=== PATIENT | female | born 1985 | race Two or more races ===

== ENCOUNTER 2020-07-18 13:03 | Emergency (ER) | payer BC, OTHER ==
--- NOTE | 2020-07-18 13:07 | PDOC ---
Rapid Medical Evaluation Time Seen by Provider: 07/18/20 13:06 Medical Evaluation: Allergies Allergy/AdvReac Type Severity Reaction Status Date / Time No Known Allergies Allergy Verified 07/18/20 13:05 07/18/20 13:06 34 year old female no pmhx with lower abdominal pain x 3 days with vaginal bleeding. Pt also complaining of Headache VSS PE: Mildly ttp to lower abdomen Plan: Labs TVUS
[2020-07-18 13:10] VITALS: BP 122/81; PULSE 70; TEMP 98.7; BMI 25.8
--- OUTSIDE RECORDS SUMMARY | 2020-07-18 13:41 | XMS ---
:1985 Author Organization [facility] Care Team Providers Name Role Phone KRISTIE CASH Unavailable Unavailable Re-disclosure Warning The records that you are about to access may contain information from federally- assisted alcohol or drug abuse programs. If such information is present, then the following federally mandated warning applies: This information has been disclosed to you from records protected by federal confidentiality rules (42 CFR part 2). The federal rules prohibit you from making any further disclosure of this information unless further disclosure is expressly permitted by the written consent of the person to whom it pertains or as otherwise permitted by 42 CFR part 2. A general authorization for the release of medical or other information is NOT sufficient for this purpose. The Federal rules restrict any use of the information to criminally investigate or prosecute any alcohol or drug abuse patient.The records that you are about to access may contain highly sensitive health information, the redisclosure of which is protected by Article 27-F of the [facility] Public Health law. If you continue you may haveaccess to information: Regarding HIV / AIDS; Provided by facilities licensed or operated by the [facility] Office of Mental Health; or Provided by the [facility] Office for People With Developmental Disabilities. If such information is present, then the following [facility] mandated warning applies: This information has been disclosed to you from confidential records which are protected by state law. State law prohibits you from making any further disclosure of this information without the specific written consent of the person to whom it pertains, or as otherwise permitted by law. Any unauthorized further disclosure in violation of state law may result in a fine or nursing home sentence or both. A general authorization for the release of medical or other information is NOT sufficient authorization for further disclosure. Encounters Encounter Providers Location Date Indications Data Source(s ) Outpatient Attender: SHREYA, 01/03/2020 Z03.818 [facility] KRISTIE YoungAdmitter: 02:41:00 [facility] KRISTIE CASH EDT [employer] E.Referrer: KRISTIE CASH Hector Z03.818 Insurance Providers Payer name Policy type / Policy ID Covered Covered green party's Policy Plan Coverage type green party ID relationship to [place] [employer] C[place] [id number] SP [id number] [id number] 1 BC PPO [id number] SP [id number] GHI PPO [id number] SP [id number] 1 BC PPO [id number] SP [id number] Problems, Conditions, and Diagnoses Code Display Name Description Problem Type Effective Data Sour ce(s) Dates Z03.818 Encounter for ENCNTR FOR OBS Diagnosis 01/03/2020 [facility] observation for FOR SUSP EXPSR TO 02:41:00 PM [facility] suspected OTH BIOLG AGENTS [facility] [facility] [employer] poration exposure to other RULED OUT biological agents ruled out Results ID Date Data Source [id number] 01/26/2020 12:00:00 AM EDT [facility] Name Value Range Interpretation Code Description Data Latia rce(s) Supporting Document(s ) RESULT [facility] This lab was ordered by [facility] and reported by [facility]. ID Date Data Source [id number] 01/03/2020 12:00:00 AM EDT [facility] Name Value Range Interpretation Code Description Data Latia rce(s) Supporting Document(s ) 2019-nCoV [facility] RNA XXX ELMER+probe- Imp This lab was ordered by [facility] and reported by [employer] Procedure
--- NOTE | 2020-07-18 14:05 | PDOC ---
History of Present Illness - General Chief Complaint: Pain Stated Complaint: ABD PAIN Time Seen by Provider: 07/18/20 13:06 History Source: Patient Exam Limitations: No Limitations - History of Present Illness Travel History: No Initial Comments: 07/18/20 14:06 34-year-old female presents to ED with complaints of heavy painful menses along with suprapubic cramping. Patient states has had her menstrual cycle twice in this month and states last month also had a within 20 days of the previous cycle. Patient denies history of endometriosis, fibroids, cysts or concern for . Patient denies fever, chills, nausea, or weakness. Timing/Duration: reports: intermittent Quality: reports: mild Abdominal Pain Onset Location: reports: suprapubic Pain Radiation: reports: no radiation Activities at Onset: reports: none Aggravating Factors: improves with: None Alleviating Factors: improves with: None Past History - Travel History Traveled outside of the country in the last 30 days: No Close contact w/someone who was outside of country & ill: No - Medical History Allergies/Adverse Reactions: Allergies Allergy/AdvReac Type Severity Reaction Status Date / Time No Known Allergies Allergy Verified 07/18/20 13:05 COPD: No - Reproductive History Is Patient Now?: No - Psycho-Social/Smoking History Patient Lives Alone: No Lives with/in: spouse/SO Smoking History: Current every day smoker Have you smoked in the past 12 months: Yes Number of Cigarettes Smoked Daily: 0 Information on smoking cessation initiated: Yes - Substance Abuse Hx (Audit-C & DAST Scrn) How often the patient has a drink containing alcohol: Never Score: In Men: 4 or > Positive; In Women: 3 or > Positive: 0 Screen Result (Pos requires Nsg. Audit-10AR): Negative In the last yr the pt used illegal drug/Rx for NonMed reason: No Score: Yes response is considered Positive: 0 Screen Result (Positive result requires Nsg. DAST-10): Negative Review of Systems - Review of Systems Able to Perform ROS?: No Is the patient limited Yakut proficient: No Constitutional: No: Symptoms Reported HEENTM: No: Symptoms Reported Respiratory: No: Symptoms reported Cardiac (ROS): No: Symptoms Reported ABD/GI: Yes: Abdominal cramping. No: Nausea, Poor Appetite, Poor Fluid Intake, Vomiting : No: Symptoms Reported Musculoskeletal: No: Symptoms Reported Integumentary: No: Symptoms Reported Neurological: No: Symptoms reported *Physical Exam - Vital Signs Last Vital Signs Temp Pulse Resp BP Pulse Ox 98.7 F 70 18 122/81 100 07/18/20 13:06 07/18/20 13:06 07/18/20 13:06 07/18/20 13:06 07/18/20 13:06 - Physical Exam General Appearance: Yes: Nourished, Appropriately Dressed. No: Apparent Distress HEENT: negative: Pale Conjunctivae Neck: positive: Normal Thyroid, Supple Respiratory/Chest: positive: Lungs Clear, Normal Breath Sounds. negative: Respiratory Distress, Accessory Muscle Use Cardiovascular: positive: Regular Rate Gastrointestinal/Abdominal: positive: Normal Bowel Sounds, Soft, Tenderness (Mid suprapubic). negative: Distended Musculoskeletal: negative: CVA Tenderness Integumentary: positive: Normal Color, Warm, Moist Neurologic: positive: Motor Strength 5/5 (Ambulatory) ED Treatment Course - LABORATORY CBC & Chemistry Diagram: 07/18/20 14:13 07/18/20 14:13 Medical Decision Making - Medical Decision Making 07/18/20 14:16 Chief complaint: Lower suprapubic pain along with heavy irregular menses occurring approximately 1-2 times a month exam as closed no adnexal tenderness no vaginal bleeding or discharge. Patient with severe tenderness on exam. Plan: Labs, urine ultrasound ordered 07/18/20 16:33 Ultrasound shows a 1.7 left ovarian cyst/follicle. Several subcentimeter right ovarian follicles are seen. No evidence of ovarian torsion there is no obvious uterine pathology. Endometrial thickness 0.6 cm. I will recommend patient follow-up with her HALL CLERK to have her FSH along with her LH levels checked Discharge - Discharge Information Problems reviewed: Yes Clinical Impression/Diagnosis: Abnormal uterine bleeding Condition: Good Disposition: HOME - Follow up/Referral - Patient Discharge Instructions Patient Printed Discharge Instructions: DI for Vaginal Bleeding Additional Instructions: At this time your ultrasound lab work and urine were negative. I do recommend you follow-up with your HALL CLERK to have hormone levels along with blood work completed - Post Discharge Activity
[2020-07-18 14:42] LABS: BASO % 1.1 % (0-2.0); EOS % 0.8 % (0-4.5); HEMATOCRIT 40.5 % (32.4-45.2); HEMOGLOBIN 13.5 GM/dL (10.7-15.3); LYMPH % 48.2 % (8-40); MCHC 33.2 g/dl (32.0-36.0); MEAN CELL VOLUME 93.3 fl (80-96); MEAN PLT VOLUME 8.5 fl (7.5-11.1); MONO % 3.9 % (3.8-10.2); PLATELET COUNT 304 K/MM3 (134-434); RBC 4.34 M/mm3 (3.60-5.2); RDW 12.9 % (11.6-15.6); WHITE BLOOD COUNT 7.8 K/mm3 (4.0-10.0)
[2020-07-18 15:10] LABS: ALBUMIN 3.8 g/dl (3.4-5.0); ALK PHOS 56 U/L (45-117); ANION GAP 5 MMOL/L (8-16); BILIRUBIN,TOTAL 0.5 mg/dL (0.2-1); BLOOD UREA NITROGEN 9.8 mg/dL (7-18); CALCIUM 9.2 mg/dL (8.5-10.1); CHLORIDE 104 mmol/L (98-107); CO2 29 mmol/L (21-32); CREATININE 0.7 mg/dL (0.55-1.3); GLUCOSE,RANDOM 74 mg/dL (74-106); POTASSIUM 4.6 mmol/L (3.5-5.1); SGOT/AST 30 U/L (15-37); SGPT/ALT 21 U/L (13-61); SODIUM 138 mmol/L (136-145)
[2020-07-18 15:38] LABS: EPI CELLS 3 /uL (0-25.1); HYALINE CASTS 0 /uL (0-3.1); URINE APPEARANCE CLEAR; URINE BACTERIA 110 /uL (0-1359); URINE BILIRUBIN NEGATIVE (NEGATIVE); URINE COLOR YELLOW; URINE GLUCOSE (UA) NEGATIVE (NEGATIVE); URINE KETONE NEGATIVE (NEGATIVE); URINE LEUK ESTERASE NEGATIVE (NEGATIVE); URINE NITRITE NEGATIVE (NEGATIVE); URINE PROTEIN NEGATIVE (NEGATIVE); URINE RBC 7 /uL (0-23.9); URINE UROBILINOGEN 0.2 mg/dL (0.2-1.0); URINE WBC 3 /uL (0-25.8)
== END 2020-07-18 17:05 | disposition home or self-care (01) ==
LOC: JER 13:03
DX: N93.9 Abnormal uterine and vaginal bleeding, unspecified (principal)
CPT/HCPCS: 36415; 76830-TC; 80053; 81003; 84702; 85025; 86850; 86900; 86901; 87086; 99284-25

== ENCOUNTER 2022-04-16 18:09 | Emergency (ER) | payer BC, OTHER ==
[2022-04-16 18:22] VITALS: TEMP 97.5; BMI 27.2
[2022-04-16] MEDS ORDERED: ACETAMINOPHEN 1000 MG/100 ML BAG IVPB ONE (20:36)
[2022-04-16] MEDS ORDERED: METOCLOPRAMIDE HCL INJECTION 10 MG/2 ML VIAL IVPB ONE (20:36)
[2022-04-16] MEDS ORDERED: SODIUM CHLORIDE 1,000 ML IV STA (20:36)
[2022-04-16] MEDS ORDERED: METOCLOPRAMIDE HCL INJECTION 10 MG/2 ML VIAL ONE (21:00)
[2022-04-16] MEDS ORDERED: ACETAMINOPHEN INJECTION 100 ML IVPB ONE (21:00)
[2022-04-16 21:11] LABS: URINE APPEARANCE CLOUDY; URINE BILIRUBIN NEGATIVE (NEGATIVE); URINE COLOR DK YELLOW; URINE GLUCOSE (UA) NEGATIVE (NEGATIVE); URINE KETONE NEGATIVE (NEGATIVE); URINE LEUK ESTERASE NEGATIVE (NEGATIVE); URINE NITRITE NEGATIVE (NEGATIVE); URINE PROTEIN NEGATIVE (NEGATIVE); URINE UROBILINOGEN 0.2 mg/dL (0.2-1.0)
[2022-04-16 21:14] LABS: HCG,QUALITATIVE URINE Negative
[2022-04-16] MEDS ORDERED: KETOROLAC TROMETHAMINE 30 MG/1 ML VIAL IVPUSH ONE (22:33)
[2022-04-16] MEDS ORDERED: KETOROLAC TROMETHAMINE 30 MG/1 ML VIAL ONE (22:40)
[2022-04-16] MEDS ORDERED: CYCLOBENZAPRINE HCL 10 MG TABLET (FP) ONE (23:58)
[2022-04-17] MEDS ORDERED: CYCLOBENZAPRINE HCL 10 MG TABLET (FP) PO ONE (00:26)
[2022-04-17 00:37] VITALS: BP 115/86; PULSE 71
[2022-04-17] MEDS ORDERED: CYCLOBENZAPRINE HCL 5 MG TABLET PO ONE ×2 (12:12→23:45)
== END 2022-04-17 00:37 | disposition home or self-care (01) ==
LOC: JER 18:09
PROC: 3E0333Z Introduction of Anti-inflammatory into Peripheral Vein, Percutaneous Approach (ICD-10-PCS; principal; 2022-04-16)
PROC: 3E0333Z Introduction of Anti-inflammatory into Peripheral Vein, Percutaneous Approach (ICD-10-PCS; 2022-04-16)
PROC: 3E033GC Introduction of Other Therapeutic Substance into Peripheral Vein, Percutaneous Approach (ICD-10-PCS; 2022-04-16)
PROC: 3E0337Z Introduction of Electrolytic and Water Balance Substance into Peripheral Vein, Percutaneous Approach (ICD-10-PCS; 2022-04-16)
DX: R09.81 Nasal congestion (principal); G44.209 Tension-type headache, unspecified, not intractable
CPT/HCPCS: 70450-TC; 81003; 84703; 99284-25

== ENCOUNTER 2022-05-11 15:22 | Emergency (ER) | payer OTHER ==
[2022-05-11] MEDS ORDERED: SODIUM CHLORIDE 0.9% 500 ML INFUS.BAG IV ONE (15:42)
[2022-05-11] MEDS ORDERED: PROCHLORPERAZINE INJECTION 10 MG/2 ML VIAL IVPB ONE (15:43)
[2022-05-11] MEDS ORDERED: METOCLOPRAMIDE HCL INJECTION 10 MG/2 ML VIAL IVPUSH ONE (15:43)
[2022-05-11 15:45] VITALS: BP 115/83; PULSE 71; RESP 16; TEMP 98.6; BMI 27.3
[2022-05-11] MEDS ORDERED: METOCLOPRAMIDE HCL INJECTION 10 MG/2 ML VIAL ONE (15:47)
[2022-05-11] MEDS ORDERED: ACETAMINOPHEN 1000 MG/100 ML BAG IVPB ONE (16:56)
[2022-05-11] MEDS ORDERED: ACETAMINOPHEN INJECTION 100 ML IVPB ONE (17:04)
== END 2022-05-11 17:31 | disposition home or self-care (01) ==
LOC: FER 15:22
PROC: 3E033NZ Introduction of Analgesics, Hypnotics, Sedatives into Peripheral Vein, Percutaneous Approach (ICD-10-PCS; principal; 2022-05-11)
PROC: 3E033GC Introduction of Other Therapeutic Substance into Peripheral Vein, Percutaneous Approach (ICD-10-PCS; 2022-05-11)
DX: R51.9 Headache, unspecified (principal)
CPT/HCPCS: 99284-25